=== PATIENT | male | born 2000 | race Two or more races ===

== ENCOUNTER 2020-07-08 09:30 | Outpatient (CLI) | payer BC ==
[2020-07-08] MEDS ORDERED: MUPIROCIN 2% CREAM 15 GM TUBE TP ONE (10:08)
[2020-07-08] MEDS ORDERED: LIDOCAINE HCL/MPF 1% 30 ML VIAL IJ ONE (10:31)
[2020-07-08] MEDS ORDERED: CLOTRIMAZOLE 1% 15 GM TUBE TP ONE (10:44)
== END 2020-07-08 23:59 | disposition home or self-care (01) ==
LOC: WOU 09:30
PROVIDERS: ATTEND Podiatrist Foot & Ankle Surgery
DX: L60.0 Ingrowing nail (principal); L03.032 Cellulitis of left toe; M79.675 Pain in left toe(s)
CPT/HCPCS: 11730; 87070; 87075; 87077; J3490

== ENCOUNTER 2020-07-15 09:26 | Outpatient (CLI) | payer BC | END 2020-07-15 23:59 | disposition home or self-care (01) | LOC: WOU 09:26 | PROVIDERS: ATTEND Podiatrist Foot & Ankle Surgery | DX: L03.032 Cellulitis of left toe (principal); B95.61 Methicillin susceptible Staphylococcus aureus infection as the cause of diseases classified elsewhere; L60.0 Ingrowing nail | CPT/HCPCS: G0463 ==

== ENCOUNTER 2020-12-26 10:40 | Outpatient (CLI) | payer BC | END 2020-12-26 23:59 | disposition home or self-care (01) | LOC: WOU 10:40 | PROVIDERS: ATTEND Podiatrist Foot & Ankle Surgery | DX: L60.0 Ingrowing nail (principal); R60.0 Localized edema; M79.675 Pain in left toe(s) | CPT/HCPCS: G0463 ==